=== PATIENT | male | born 1965 | race Two or more races ===

== ENCOUNTER 2017-02-16 07:25 | Emergency (ER) | payer OTHER ==
[2017-02-16 07:30] VITALS: BP 155/94; PULSE 68; TEMP 98; BMI 31.8
--- NOTE | 2017-02-16 07:47 | PDOC ---
Attending Attestation - Resident Resident Name: Luiza Wood - ED Attending Attestation I have performed the following: I have examined & evaluated the patient, The case was reviewed & discussed with the resident, I agree w/resident's findings & plan, Exceptions are as noted - HPI HPI: 02/16/17 07:43 Acute Exacerbation Chronic Back Pain - Physicial Exam PE: 02/16/17 07:46 Appears Uncomfortable, No acute neurological deficit - Medical Decision Making 02/16/17 07:[address] Luiza Wood's Assessment and Plan
--- NOTE | 2017-02-16 07:50 | PDOC ---
History of Present Illness - General Stated Complaint: BACK PAIN Time Seen by Provider: 02/16/17 07:26 History Source: Patient - History of Present Illness Initial Comments: 51 year old male with PMH of chronic back pain (s/p T4-T5 discectomy in 2007), HTN, and diabetes presenting for acute chronic back pain exacerbation. States that over the past two weeks his left sided back pain has worsened. It became particularly troublesome when he bent over yesterday to tie his shoe laces. He describes the pain as sharp lower left sided back pain that ranges from 5/10-10/ 10 in duration that only gets better when laying down and only slightly with Naproxen 500 BID. He states that Flexural does not help the pain either. He saw his PMD one month prior for shoulder pain and at that time had a slight back pain as well for which he was prescribed Flexural and naproxen. He had a CT performed one year prior that showed some L2-S3 spinal stenosis. He has limited movement 2/2 pain but denies sensation loss, extremity weakness, or bowel / bladder sensation. Denies fevers, chills, nausea, vomiting, diarrhea, ore other sick symptoms. 02/16/17 07:27 Past History - Past Medical History Allergies/Adverse Reactions: Allergies Allergy/AdvReac Type Severity Reaction Status Date / Time No Known Allergies Allergy Verified 02/16/17 07:30 Home Medications: Ambulatory Orders Lisinopril [Prinivil -] 40 mg PO DAILY 02/16/17 Metformin HCl [Metformin HCl ER] 1,000 mg PO BID 02/16/17 Diabetes: Yes Thyroid Disease: No - Surgical History Abdominal Surgery: Yes (tripp inguinal hernia repair) - Immunization History Immunization Up to Date: No - Suicide/Smoking/Psychosocial Hx Smoking History: Never smoked Have you smoked in the past 12 months: No Hx Alcohol Use: No Drug/Substance Use Hx: No Substance Use Type: None Review of Systems - Review of Systems Constitutional: No: Chills, Fever HEENTM: No: Blurred Vision, Double Vision Respiratory: No: Cough Cardiac (ROS): No: Chest Pain ABD/GI: No: Abdominal Distended, Nausea, Vomiting : No: Burning, Dysuria, Discharge Musculoskeletal: No: Back Pain, Joint Pain Neurological: No: Headache, Numbness, Paresthesia *Physical Exam - Physical Exam General Appearance: Yes: Nourished, Appropriately Dressed, Apparent Distress, Mild Distress HEENT: positive: EOMI, WHITNEY, Normal Voice Neck: positive: Normal Thyroid, Supple. negative: Tender, Rigid Respiratory/Chest: positive: Lungs Clear, Normal Breath Sounds. negative: Chest Tender Cardiovascular: positive: Regular Rhythm, Regular Rate, S1, S2. negative: Edema , JVD, Murmur Gastrointestinal/Abdominal: positive: Normal Bowel Sounds, Flat, Soft. 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 TTP over left lower back at L1-L3 region.), Respond to painful stimul. negative: Numbness, Sensory Deficit Medical Decision Making - Medical Decision Making 02/16/17 08:31 51 year old male with history of back pain and spinal stenosis presenting with acute non-traumatic acute on chronic back pain without any radicular signs or neurological deficits. Pain improved after Toradol 60 IM and patient will follow up with his neurologist. He has flexural and Naproxen at home which only slightly help the pain but he is refusing any opiates and we do not feel that they would be beneficial for him in the long run. *DC/Admit/Observation/Transfer Diagnosis at time of Disposition: Back pain - Discharge Dispostion Disposition: HOME Condition at time of disposition: Improved Admit: No - Patient Instructions Additional Instructions: Please follow up with your neurologist for further treatment of your back pain. Please return to the ED if the pain is not controlled with your Naproxen or Flexural at home.
[2017-02-16] MEDS ORDERED: KETOROLAC TROMETHAMINE 60 MG/2 ML VIAL IM ONE (07:51)
[2017-02-16] MEDS ORDERED: KETOROLAC TROMETHAMINE 60 MG/2 ML VIAL ONE (07:54)
== END 2017-02-16 08:54 | disposition home or self-care (01) ==
LOC: JER 07:25
PROC: 3E0233Z Introduction of Anti-inflammatory into Muscle, Percutaneous Approach (ICD-10-PCS; principal; 2017-02-16)
DX: M54.6 Pain in thoracic spine (principal); I10 Essential (primary) hypertension; E11.9 Type 2 diabetes mellitus without complications
CPT/HCPCS: 96372; 99283-25

== ENCOUNTER 2018-04-14 20:49 | Observation (INO) | payer SELFPAY ==
[2018-04-14 21:47] VITALS: BMI 26.6
--- NOTE | 2018-04-14 21:49 | PDOC ---
History of Present Illness - General Chief Complaint: Syncope/Near Syncope Stated Complaint: SYNCOPE Time Seen by Provider: 04/14/18 21:48 - History of Present Illness Initial Comments: 04/14/18 22:48 The patient is a 52 year old male with a history of HTN, DM who presents for evaluation following a syncopal episode. The patient reports having 2 syncopal episodes prior to presentation to the ED today. He notes that after the syncopal episodes, he has been experiencing left sided chest pressure with an associated pressure/pounding headache. He states that his headache is associated with photophobia and phonophobia. He denies a history of headaches in the past. He states his chest pain has improved slightly on presentation to the ED and otherwise denies fevers, chills, SOB, vomiting, abdominal pain, numbness, tingling, weakness, or changes with urination or bowel movements. Past History - Past Medical History Allergies/Adverse Reactions: Allergies Allergy/AdvReac Type Severity Reaction Status Date / Time No Known Allergies Allergy Verified 04/14/18 21:46 Home Medications: Ambulatory Orders Lisinopril [Prinivil -] 40 mg PO DAILY 02/16/17 Metformin HCl [Metformin HCl ER] 1,000 mg PO BID 02/16/17 Diabetes: Yes Thyroid Disease: No - Surgical History Abdominal Surgery: Yes (tripp inguinal hernia repair) - Immunization History Immunization Up to Date: No - Suicide/Smoking/Psychosocial Hx Smoking History: Never smoked Have you smoked in the past 12 months: No Information on smoking cessation initiated: No Hx Alcohol Use: No Drug/Substance Use Hx: No Substance Use Type: None Review of Systems - Review of Systems Comments:: 04/14/18 22:52 Constitutional: No fevers, chills, fatigue, malaise HEENT: No Rhinorrhea, nasal congestion, visual changes Cardiovascular: Chest pressure, syncope. No palpitations, lightheadedness Respiratory: No Cough, SOB, Hemoptysis, Gastrointestinal: Nausea. No Abdominal pain, Vomiting, Constipation, Diarrhea, Melena Genitourinary: No Dysuria, Frequency, Urgency, Hesitancy, Hematuria, Flank pain Musculoskeletal: No Myalgia, arthralgia Skin: No rashes, itching, bruising, pallor Neurologic: Headache. No Dizziness, Numbness, Weakness, or Tingling Psychiatric: No Hallucinations. No SI or HI *Physical Exam - Vital Signs Last Vital Signs Temp Pulse Resp BP Pulse Ox 98.6 F 72 19 142/95 97 04/14/18 20:49 04/14/18 20:49 04/14/18 20:49 04/14/18 20:49 04/14/18 20:49 - Physical Exam Comments: 04/14/18 22:52 General Appearance: Nourished. No Apparent Distress HEENT: EOMI, WHITNEY. No Pharyngeal Erythema, Tonsillar Exudate, Tonsillar Erythema Neck: No Cervical Lymphadenopathy Respiratory/Chest: Lungs Clear, Normal Breath Sounds. No Crackles, Rales, Rhonchi, Wheezing Cardiovascular: Regular Rhythm, Regular Rate. No Murmur, Gallops, Rubs Gastrointestinal/Abdominal: Normal Bowel Sounds, Soft. 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 Normal Finger to Nose and Heel to [place] Moderate Sedation - Procedure Monitoring Vital Signs: Procedure Monitoring Vital Signs Temperature 98.6 F 04/14/18 20:49 Pulse Rate 72 04/14/18 20:49 Respiratory Rate 19 04/14/18 20:49 Blood Pressure 142/95 04/14/18 20:49 O2 Sat by Pulse Oximetry (%) 97 04/14/18 20:49 Heart Score/ECG Review #1 ECG reviewed & interpreted by me at: 22:53 Compared to previous ECG there are: Changes noted (05/10/15) 04/14/18 22:53 Sinus rhythm with frequent PVCs Prolonged QT T wave inversions in leads II, III, aVF, V3-v6 ED Treatment Course - LABORATORY CBC & Chemistry Diagram: 04/15/18 00:05 04/15/18 00:05 Medical Decision Making - Medical Decision Making 04/14/18 22:55 The patient is a 52 year old male with a history of HTN, DM who presents for evaluation following a syncopal episode. Differential includes but is not limited to: ACS, Arrhythmia, Intracranial process, Infectious, Metabolic Derangement. Given the patient's history and physical exam, we will obtain a cbc, cmp, troponin, ua, ekg, chest plain film, head CT to evaluate further. We will treat with iv fluids, tylenol, benadryl, reglan and continue to monitor and reassess while here in the ED. 04/15/18 06:00 CBC, troponin, ua are unremarkable. CMP demonstrates elevated glucose to 400s. Chest plain film is unremarkable. Head CT is unremarkable as preliminarily read by our precision machining instructor radiologist. Given the patient's abnormal EKG with elevated blood sugar and syncope, he will require observation admission for further monitoring. We discussed the case with the admitting team who accepted the patient for admission. *DC/Admit/Observation/Transfer Diagnosis at time of Disposition: Hyperglycemia Syncope Qualifiers: Syncope type: unspecified Qualified Code(s): R55 - Syncope and collapse Chest pain Qualifiers: Chest pain type: unspecified Qualified Code(s): R07.9 - Chest pain, unspecified - Discharge Dispostion Condition at time of disposition: Stable Decision to Admit order: Yes - Referrals - Patient Instructions - Post Discharge Activity
[2018-04-14] MEDS ORDERED: METOCLOPRAMIDE HCL INJECTION 10 MG/2 ML VIAL IVPUSH ONE (22:02)
[2018-04-14] MEDS ORDERED: ACETAMINOPHEN 1000 MG/100 ML VIAL (NON FORMULARY) IVPB ONE (22:02)
--- NOTE | 2018-04-14 22:19 | PDOC ---
Attending Attestation - [facility] HPI: 04/14/18 22:19 The patient is a 52 year old male, with a significant past medical history of chronic back pain (s/p T4-T5 discectomy in 2007), HTN, and diabetes, who presents to the emergency department via ems after a syncopal episode about 2 hours prior to ED arrival today. He now complains of chest pain and headache now. He states he had two syncopal episodes lasting for a few seconds each time. He denies any head trauma. He reports left sided chest pressure pain and a diffuse pounding pressure like headache with associated sensitivity to light which started after his syncopal episodes. He states he has been under a great deal of stress this month. He denies a history of headaches. The patient denies shortness of breath and dizziness. The patient denies fever, chills, nausea, vomit, diarrhea and constipation. The patient denies dysuria, frequency, urgency and hematuria. Allergies: NKDA Past surgical history: b/l inguinal hernia repairs Social history: denies toxic habits - Medical Decision Making 04/14/18 22:19 Documentation prepared by Dania Bunn, acting as medical esthetician for Gordon Hercules MD ------ EXAM: HEAD CT WITHOUT CONTRAST HISTORY: Rule out intracranial process COMPARISON: None. FINDINGS: The ventricular system is midline and nondilated. The sulcal pattern is normal for the patient's age. There is no bleed, mass, extra-axial fluid collection or mass effect. No skull fracture or skull lesion is identified. The visualized paranasal sinuses and mastoid air cells are clear. IMPRESSION: Normal exam. THIS DOCUMENT HAS BEEN ELECTRONICALLY SIGNED Reed Khan MD 04/14/2018 23:42 EST <Dania Bunn - Last Filed: 04/15/18 00:03> - Resident Resident Name: Derek Frye - ED Attending Attestation I have performed the following: I have examined & evaluated the patient, The case was reviewed & discussed with the resident, I agree w/resident's findings & plan, Exceptions are as noted - Physicial Exam PE: 04/14/18 23:14 Agree with exam as documented by resident - Medical Decision Making 04/14/18 23:14 Pt describes leoncio syncopal events x2 w/o prodrome, no nausea, dizziness prior to event, no discernable trigger, did not occur while transitioning to standing. Differential for syncope is broad, most c/f arrythmia, less likely vasovagal, orthostatic. Headache with concerning feature of sudden onset. f/u labs, ekg, ct b dispo per clinical course 04/15/18 04:04 Abnormal ekg in context of syncope pt to be admitted <Gordon Hercules - Last Filed: 04/15/18 04:05>
[2018-04-14] MEDS ORDERED: METOCLOPRAMIDE HCL INJECTION 10 MG/2 ML VIAL ONE (22:33)
[2018-04-14] MEDS ORDERED: ACETAMINOPHEN INJECTION 100 ML IVPB ONE (22:34)
[2018-04-14 22:52] LABS: URINE APPEARANCE CLEAR; URINE BILIRUBIN NEGATIVE (<2.0 mg/dL); URINE COLOR STRAW; URINE GLUCOSE (UA) 3+ (NEGATIVE); URINE KETONE NEGATIVE (NEGATIVE); URINE LEUK ESTERASE NEGATIVE (NEGATIVE); URINE NITRITE NEGATIVE (NEGATIVE); URINE PROTEIN NEGATIVE (NEGATIVE); URINE UROBILINOGEN NEGATIVE mg/dL (0.2-1.0)
[2018-04-15 00:48] LABS: HEMATOCRIT 39.8 % (35.4-49); RBC 4.52 M/mm3 (4.00-5.60); WHITE BLOOD COUNT 6.2 K/mm3 (4.0-10.0)
[2018-04-15 00:49] LABS: BASO % 0.5 % (0-2.0); EOS % 2.5 % (0-4.5); LYMPH % 35.2 % (8-40); MCH 30.9 pg (25.7-33.7); MEAN CELL VOLUME 88.1 fl (80-96); MEAN PLT VOLUME 11.4 fl (7.5-11.1); MONO % 8.1 % (3.8-10.2); NEUT % 53.7 % (42.8-82.8); PLATELET COUNT 141 K/MM3 (134-434)
[2018-04-15 01:15] LABS: ALBUMIN 3.4 g/dl (3.4-5.0); ALK PHOS 119 U/L (45-117); ANION GAP 5 MMOL/L (8-16); BILIRUBIN,TOTAL 0.5 mg/dL (0.2-1); BLOOD UREA NITROGEN 13 mg/dL (7-18); CALCIUM 8.1 mg/dL (8.5-10.1); CHLORIDE 105 mmol/L (98-107); CO2 26 mmol/L (21-32); CREATININE 1.1 mg/dL (0.55-1.3); MAGNESIUM 2.1 mg/dL (1.8-2.4); PHOSPHOROUS 3.3 mg/dL (2.5-4.9); POTASSIUM 4.3 mmol/L (3.5-5.1); SGOT/AST 22 U/L (15-37); SGPT/ALT 31 U/L (13-61); SODIUM 137 mmol/L (136-145); TOT PROT 6.4 g/dl (6.4-8.2)
[2018-04-15 01:17] LABS: GLUCOSE,RANDOM 451 mg/dL (74-106)
[2018-04-15] MEDS ORDERED: SODIUM CHLORIDE 1,000 ML IV STA ×2 (01:20→02:03)
[2018-04-15] MEDS ORDERED: ASPIRIN 81 MG CHEWABLE TABLETS PO ONE (02:03)
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
[2018-04-15] MEDS ORDERED: INSULIN (NOVOLOG) ASPART 100 UNITS/ML 10ML VIAL SQ ONE (03:24)
--- NOTE | 2018-04-15 03:50 | HP ---
CHIEF COMPLAINT: Passed out PCP: Dr. Cristin Bhardwaj HISTORY OF PRESENT ILLNESS: 52 y/o M with PMHx of DM, HTN presents after "Fainting" earlier this evening. Patient says he has had increased stress from work for the past 1 month. He says he had a normal work day today. When he arrived home, he had an argument with his daughter after which he was very upset. He says he walked away, and started to feel an intense headache accompanied by chest pain. Patient describes the headache as a 8/10 pressure and pounding sensation at his b/l temporal areas without radiation. He describes the Chest pain as a 9/10, left sided chest pressure without radiation. After experiencing both of these sensations, patient says he "fainted and blacked out." The next thing the patient recalls is waking up in his bed surrounded by EMS. His memory of the event is very vague and he is unsure if he lost bladder control. Patient told him that he awoke and the lost conciousness however patient does not recall waking. Additionally he denies any jerking extremity or neck movements. He endorses photophobia that has since resolved, Blurry vision, and dizziness. Patient mentions that he had a similar episode of fainting about 3 years ago however he never visited a doctor to follow up. He says that episode was also possibly due to stress. Over the past month, patient has noticed he has lost some weight (Unable to specify amount). He also endorses Urinary frequency, increased thirst. He does not routinely take his medications or check his blood sugar at home. He has last followed up with his PCP about 1 year ago. Denies any decreased PO Intake, Fevers, chills, SOB, nausea, vomiting, diarrhea , constipation. Recent Travel: Denies PAST MEDICAL HISTORY: HTN, DM PAST SURGICAL HISTORY: B/L Inguinal Hernia Repair T4-T5 discectomy Should repair Social History: Smoking: Denies Alcohol: Denies Drugs: Denies Occupation: [employer] Ambulation: Without assistance Residence: At home with and daughter Family History: Mother: DM, HTN Sister: Pancreatic Ca, DM, HTN Allergies No Known Allergies Allergy (Verified 04/14/18 21:46) HOME MEDICATIONS: Home Medications Medication Instructions Recorded Lisinopril [Prinivil -] 40 mg PO DAILY 02/16/17 Metformin HCl [Metformin HCl ER] 1,000 mg PO BID 02/16/17 REVIEW OF SYSTEMS As per HPI PHYSICAL EXAMINATION Vital Signs - 24 hr 04/14/18 04/15/18 20:49 00:40 Temperature 98.6 F 98.1 F Pulse Rate 72 Pulse Rate [ 58 L Apical] Respiratory 19 20 Rate Blood Pressure 142/95 Blood Pressure 109/71 [Right Arm] O2 Sat by Pulse 97 98 Oximetry (%) GENERAL: A&Ox3, NAD HEAD: NCAT EYES: PERRL, EOMI EARS, NOSE, THROAT: Oropharynx clear without exudates. Moist mucous membranes. NECK: No lymphadenopathy, No JVD LUNGS: Breath sounds equal, clear to auscultation bilaterally. No wheezes HEART: Regular rate and rhythm, normal S1 and S2 without murmur ABDOMEN: Soft, nontender, not distended, + bowel sounds, no guarding MUSCULOSKELETAL: No CVA tenderness. EXTREMITIES: 2+ pulses, No peripheral edema. NEUROLOGICAL: Cranial nerves II-XII intact. Normal speech. Gross sensation intact globally. 5/5 Muscle strength throughout. No dyskenesia or dysmetria present PSYCHIATRIC: Cooperative. Good eye contact. Appropriate mood and affect. SKIN: Warm, dry Laboratory Results - last 24 hr 04/14/18 04/15/18 04/15/18 22:20 00:05 00:05 WBC 6.2 RBC 4.52 Hgb 14.0 Hct 39.8 MCV 88.1 MCH 30.9 MCHC 35.0 RDW 13.0 Plt Count 141 MPV 11.4 H Absolute Neuts (auto) 3.4 Neutrophils % 53.7 Lymphocytes % 35.2 Monocytes % 8.1 Eosinophils % 2.5 Basophils % 0.5 Nucleated RBC % 0 Sodium 137 Potassium 4.3 Chloride 105 Carbon Dioxide 26 Anion Gap 5 L BUN 13 Creatinine 1.1 Creat Clearance w eGFR > 60 Random Glucose 451 H* Calcium 8.1 L Phosphorus 3.3 Magnesium 2.1 Total Bilirubin 0.5 AST 22 ALT 31 Alkaline Phosphatase 119 H Creatine Kinase 396 H Creatine Kinase Index 1.4 CK-MB (CK-2) 5.8 H Troponin I < 0.02 Total Protein 6.4 Albumin 3.4 Urine Color Straw Urine Appearance Clear Urine pH 5.0 Ur Specific [place] 1.028 Urine Protein Negative Urine Glucose (UA) 3+ H Urine Ketones Negative Urine Blood Negative Urine Nitrite Negative Urine Bilirubin Negative Urine Urobilinogen Negative Ur Leukocyte Esterase Negative ASSESSMENT/PLAN: 52 y/o M with PMHx of DM, HTN presents after "Fainting" earlier this evening, found to have elevated Blood glucose and CK, and will be observed on Tele for Syncope. #Syncope accompanied by Chest pain and Headache -Unclear Etiology -EKG Reveals Sinus rhythm with frequent PVCs, VR 72, QTc 481, TWI in II, II, aVF , V4-V6 -Head CT without contrast: Normal exam. No Bleed, mass, extra-axial fluid collection -Echo -Carotid Dopplers -MRI Brain without contrast -TSH, Lipid panel ordered -Repeat EKG and 2nd Cardiac profile ordered -Cardiology (Dr. Pizarro) consulted -Tele monitoring -ASA given in ED -Continue IV NS @ 75 mls/hr #Uncontrolled DM -Hold home dose Metformin -4 units Novolog now -ISS BGMs ACHS -HbA1c pending -Social Work consulted as [facility] and could benefit from available resources to obtain his medications #Hx of HTN -Can resume Home dose Lisinopril once meds-Rec'ed #FEN -IV NS @ 75 mls/hr -Lytes WNL -NPO #PPx -DVT: Lovenox Dispo: Tele-Obs, Will need Med-Rec Visit type - Emergency Visit Emergency Visit: Yes ED Registration Date: 04/15/18 Care time: The patient presented to the Emergency Department on the above date and was hospitalized for further evaluation of their emergent condition. - New Patient This patient is new to me today: Yes Date on this admission: 04/16/18 - Critical Care Critical Care patient: No
[2018-04-15] MEDS ORDERED: SODIUM CHLORIDE 1,000 ML IV SCH (04:00)
[2018-04-15] MEDS ORDERED: INSULIN (NOVOLOG) ASPART 100 UNITS/ML 10ML VIAL ONE ×4 (04:10→16:56)
[2018-04-15] MEDS: INSULIN SLIDING SCALE (NOVOLOG) 1 VIAL SQ SCH ×3 (06:30→16:51)
[2018-04-15 07:02] LABS: BASO % 0.6 % (0-2.0); EOS % 2.9 % (0-4.5); HEMATOCRIT 38.7 % (35.4-49); HEMOGLOBIN 13.5 GM/dL (11.7-16.9); LYMPH % 45.5 % (8-40); MCH 30.7 pg (25.7-33.7); MCHC 34.8 g/dl (32.0-35.9); MEAN CELL VOLUME 88.3 fl (80-96); MEAN PLT VOLUME 10.7 fl (7.5-11.1); MONO % 8.7 % (3.8-10.2); NEUT % 42.3 % (42.8-82.8); PLATELET COUNT 141 K/MM3 (134-434); RBC 4.38 M/mm3 (4.00-5.60); WHITE BLOOD COUNT 6.3 K/mm3 (4.0-10.0)
[2018-04-15 07:42] LABS: ALBUMIN 3.1 g/dl (3.4-5.0); ALK PHOS 105 U/L (45-117); ANION GAP 4 MMOL/L (8-16); BILIRUBIN,TOTAL 0.7 mg/dL (0.2-1); BLOOD UREA NITROGEN 11 mg/dL (7-18); CALCIUM 7.6 mg/dL (8.5-10.1); CHLORIDE 113 mmol/L (98-107); CHOLESTEROL 151 mg/dL (50-200); CO2 25 mmol/L (21-32); CREATININE 0.9 mg/dL (0.55-1.3); GLUCOSE,RANDOM 90 mg/dL (74-106); HDL CHOLESTEROL 58 mg/dL (40-60); PHOSPHOROUS 2.6 mg/dL (2.5-4.9); POTASSIUM 3.6 mmol/L (3.5-5.1); SGOT/AST 20 U/L (15-37); SGPT/ALT 27 U/L (13-61); SODIUM 142 mmol/L (136-145); TRIGLYCERIDES 87 mg/dL (0-150)
[2018-04-15 09:27] VITALS: TEMP 98.7
[2018-04-15] MEDS ORDERED: ENOXAPARIN NA (PORCINE) 40 MG/0.4 ML DISP.SYRIN SQ SCH (10:00)
--- NOTE | 2018-04-15 10:08 | PN ---
Teaching Attending Note Name of Resident: Shawnee Dorsey ATTENDING PHYSICIAN STATEMENT I saw and evaluated the patient. I reviewed the resident's note and discussed the case with the resident. I agree with the resident's findings and plan as documented. SUBJECTIVE: Patient is feeling better with no acute distress, no shortness of breath, no nausea or vomiting. No further syncopal episodes. OBJECTIVE: Vital Signs Temperature 98.7 F 04/15/18 09:26 Pulse Rate 60 04/15/18 09:26 Respiratory Rate 18 04/15/18 09:26 Blood Pressure 139/73 04/15/18 09:26 O2 Sat by Pulse Oximetry (%) 98 04/15/18 09:26 GENERAL: AA0x3, NAD HEAD: NCAT ;EYES: PERRL, EOMI EARS, NOSE, THROAT: Oropharynx clear without exudates. Moist mucous membranes. NECK: No lymphadenopathy, No JVD LUNGS: Breath sounds equal, clear to auscultation bilaterally. No wheezes HEART: Regular rate and rhythm, normal S1 and S2 without murmur ABDOMEN: Soft, nontender, not distended, Positive for BS , no guarding MUSCULOSKELETAL: No CVA tenderness. EXTREMITIES: 2+ pulses, No peripheral edema. NEUROLOGICAL: Cranial nerves II-XII intact. Normal speech. PSYCHIATRIC: Cooperative. Good eye contact. Appropriate mood and affect. SKIN: Warm, dry, no erythema. CBCD WBC 6.3 K/mm3 (4.0-10.0) 04/15/18 06:40 RBC 4.38 M/mm3 (4.00-5.60) 04/15/18 06:40 Hgb 13.5 GM/dL (11.7-16.9) 04/15/18 06:40 Hct 38.7 % (35.4-49) 04/15/18 06:40 MCV 88.3 fl (80-96) 04/15/18 06:40 MCHC 34.8 g/dl (32.0-35.9) 04/15/18 06:40 RDW 13.0 % (11.9-15.9) 04/15/18 06:40 Plt Count 141 K/MM3 (134-434) 04/15/18 06:40 MPV 10.7 fl (7.5-11.1) 04/15/18 06:40 CMP Sodium 142 mmol/L (136-145) 04/15/18 06:40 Potassium 3.6 mmol/L (3.5-5.1) 04/15/18 06:40 Chloride 113 mmol/L (98-107) H 04/15/18 06:40 Carbon Dioxide 25 mmol/L (21-32) 04/15/18 06:40 Anion Gap 4 MMOL/L (8-16) L 04/15/18 06:40 BUN 11 mg/dL (7-18) 04/15/18 06:40 Creatinine 0.9 mg/dL (0.55-1.3) 04/15/18 06:40 Creat Clearance w eGFR > 60 (>60) 04/15/18 06:40 Random Glucose 90 mg/dL (74-106) 04/15/18 06:40 Calcium 7.6 mg/dL (8.5-10.1) L 04/15/18 06:40 Total Bilirubin 0.7 mg/dL (0.2-1) 04/15/18 06:40 AST 20 U/L (15-37) 04/15/18 06:40 ALT 27 U/L (13-61) 04/15/18 06:40 Alkaline Phosphatase 105 U/L (45-117) 04/15/18 06:40 Total Protein 6.0 g/dl (6.4-8.2) L 04/15/18 06:40 Albumin 3.1 g/dl (3.4-5.0) L 04/15/18 06:40 CARDIAC ENZYMES Creatine Kinase 282 IU/L (26-308) 04/15/18 06:40 Troponin I < 0.02 ng/ml (0.00-0.05) 04/15/18 06:40 Current Medications Generic Name Dose Route Start Last Admin Trade Name Freq PRN Reason Stop Dose Admin Enoxaparin Sodium 40 mg 04/15/18 10:00 Lovenox - SQ DAILY XOCHITL Sodium Chloride 1,000 mls @ 75 mls/hr 04/15/18 04:00 04/15/18 04:18 Normal Saline - IV 75 mls/hr ASDIR XOCHITL Administration Insulin Aspart 1 vial 04/15/18 07:00 04/15/18 06:30 Novolog Vial Sliding Scale - SQ Not Given ACHS [facility] Protocol Home Medications Medication Instructions Recorded Lisinopril [Prinivil -] 40 mg PO DAILY 02/16/17 Metformin HCl [Metformin HCl ER] 1,000 mg PO BID 02/16/17 EKG Reveals Sinus rhythm with frequent PVCs, VR 72, QTc 481, TWI in II, II, aVF , V4-V6 Head CT without contrast , within normal limit Echo: trace TR, MN, otherwise normal ASSESSMENT AND PLAN: Patient is a 52 y/o male with PMHx of DM, HTN presents after having a syncopal episode at home , was found to have elevated Blood glucose and CK, and was placed on observation to [facility] for Syncope. #Syncope most likely vasovagal event. cardio consulted for further evaluation. repeat EKG on ASA continue , check TSH and Lipid panel #T2DM Hold home dose Metformin, added Levemir 10U qhs, Hgb A1c is 12, continue with ISS BGMs ACHS #Hx of HTN continue home meds, except lowered the dose of Lisinopril since BP is controlled DVT Px: Lovenox
--- NOTE | 2018-04-15 12:02 | EKG ---
Test Reason : Blood Pressure : / mmHG Vent. Rate : 060 BPM Atrial Rate : 060 BPM P-R Int : 136 ms QRS Dur : 104 ms QT Int : 426 ms P-R-T Axes : 053 -28 -39 degrees QTc Int : 426 ms SINUS RHYTHM WITH FREQUENT PREMATURE VENTRICULAR COMPLEXES T WAVE ABNORMALITY, CONSIDER LATERAL ISCHEMIA ABNORMAL ECG WHEN COMPARED WITH ECG OF 14-APR-2018 22:38, QT HAS SHORTENED Confirmed by SHAUNNA ALFRED, IRIS ([id number]) on 04/15/2018 12:02:03 PM Referred By: JOSEFINA GROSS DR Confirmed By:IRIS MAZA MD
--- NOTE | 2018-04-15 12:03 | EKG ---
Test Reason : Blood Pressure : / mmHG Vent. Rate : 072 BPM Atrial Rate : 072 BPM P-R Int : 166 ms QRS Dur : 110 ms QT Int : 440 ms P-R-T Axes : 058 -22 -34 degrees QTc Int : 481 ms SINUS RHYTHM WITH FREQUENT PREMATURE VENTRICULAR COMPLEXES NONSPECIFIC T WAVE ABNORMALITY PROLONGED QT ABNORMAL ECG WHEN COMPARED WITH ECG OF 10-MAY-2015 20:50, FUSION COMPLEXES ARE NO LONGER PRESENT NONSPECIFIC T WAVE ABNORMALITY HAS REPLACED INVERTED T WAVES IN ANTERIOR LEADS NONSPECIFIC T WAVE ABNORMALITY, WORSE IN LATERAL LEADS Confirmed by IRSI MAZA MD ([id number]) on 04/15/2018 12:03:30 PM Referred By: Confirmed By:IRIS MAZA MD
--- NOTE | 2018-04-15 12:17 | ECHO ---
Name: CRUZ BRITTONIS Exam:Adult Echocardiogram Study Date: 04/15/2018 07:32 AM Age: 52 yrs Reason For Study: SYNCOPE Height: 67 in Weight: 170 lb BSA: 1.9 m2 MMode/2D Measurements & Calculations IVSd: 0.94 cm Ao root diam: 2.8 cm LVIDd: 5.2 cm LA dimension: 2.7 cm LVIDs: 3.2 cm LVPWd: 0.77 cm EDV(Teich): 130.7 ml LAV (MOD-bp): 43.9 ml ESV(Teich): 41.5 ml Doppler Measurements & Calculations MV E max favio: 114.0 cm/sec TR max favio: 229.4 cm/sec MV A max favio: 57.2 cm/sec TR max P.1 mmHg MV E/A: 2.0 MV dec time: 0.22 sec PI end-d favio: 102.5 cm/sec Med Peak E' Favio: 10.8 cm/sec Med E/e': 10.6 Lat Peak E' Favio: 13.2 cm/sec Lat E/e': 8.7 PI Vmax: 161.5 cm/sec Procedure A complete two-dimensional transthoracic echocardiogram was performed (2D, M-mode, Doppler and color flow Doppler). Left Ventricle The left ventricular size, thickness and function are normal. The left ventricular ejection fraction is normal. Ejection Fraction = 60-65%. The left ventricular wall motion is normal. Right Ventricle The right ventricle is normal in size and function. Atria Normal left and right atrial size and function. Mitral Valve There is no mitral regurgitation noted. Tricuspid Valve There is trace tricuspid regurgitation. There was insufficient TR detected to calculate RV systolic p ressure. Aortic Valve The aortic valve is trileaflet. No hemodynamically significant valvular aortic stenosis. No aortic regurgitation is present. Pulmonic Valve Trace pulmonic valvular regurgitation. Great Vessels The aortic root is normal size. Pericardium/Pleura There is no pericardial effusion. Interpretation Summary The left ventricular size, thickness and function are normal The right ventricle is normal in size and function. There is trace tricuspid regurgitation. Trace pulmonic valvular regurgitation. MD Leroy Bowman 04/15/2018 12:17 PM
--- NOTE | 2018-04-15 14:52 | PN ---
Physical Exam: SUBJECTIVE: Patient seen and examined at bedside. No acute events overnight. OBJECTIVE: Vital Signs Temperature 98.7 F 04/15/18 09:26 Pulse Rate 60 04/15/18 09:26 Respiratory Rate 18 04/15/18 09:26 Blood Pressure 139/73 04/15/18 09:26 O2 Sat by Pulse Oximetry (%) 98 04/15/18 09:26 GENERAL: A&Ox3, NAD HEAD: NCAT EYES: PERRL, EOMI EARS, NOSE, THROAT: Oropharynx clear without exudates. Moist mucous membranes. NECK: No lymphadenopathy, No JVD LUNGS: Breath sounds equal, clear to auscultation bilaterally. No wheezes HEART: Regular rate and rhythm, normal S1 and S2 without murmur ABDOMEN: Soft, nontender, not distended, + bowel sounds, no guarding MUSCULOSKELETAL: No CVA tenderness. EXTREMITIES: 2+ pulses, No peripheral edema. NEUROLOGICAL: Cranial nerves II-XII intact. Normal speech. Gross sensation intact globally. 5/5 Muscle strength throughout. No dyskinesia or dysmetria present PSYCHIATRIC: Cooperative. Good eye contact. Appropriate mood and affect. SKIN: Warm, dry CBCD WBC 6.3 K/mm3 (4.0-10.0) 04/15/18 06:40 RBC 4.38 M/mm3 (4.00-5.60) 04/15/18 06:40 Hgb 13.5 GM/dL (11.7-16.9) 04/15/18 06:40 Hct 38.7 % (35.4-49) 04/15/18 06:40 MCV 88.3 fl (80-96) 04/15/18 06:40 MCHC 34.8 g/dl (32.0-35.9) 04/15/18 06:40 RDW 13.0 % (11.9-15.9) 04/15/18 06:40 Plt Count 141 K/MM3 (134-434) 04/15/18 06:40 MPV 10.7 fl (7.5-11.1) 04/15/18 06:40 CMP Sodium 142 mmol/L (136-145) 04/15/18 06:40 Potassium 3.6 mmol/L (3.5-5.1) 04/15/18 06:40 Chloride 113 mmol/L (98-107) H 04/15/18 06:40 Carbon Dioxide 25 mmol/L (21-32) 04/15/18 06:40 Anion Gap 4 MMOL/L (8-16) L 04/15/18 06:40 BUN 11 mg/dL (7-18) 04/15/18 06:40 Creatinine 0.9 mg/dL (0.55-1.3) 04/15/18 06:40 Creat Clearance w eGFR > 60 (>60) 04/15/18 06:40 Calcium 7.6 mg/dL (8.5-10.1) L 04/15/18 06:40 Total Bilirubin 0.7 mg/dL (0.2-1) 04/15/18 06:40 AST 20 U/L (15-37) 04/15/18 06:40 ALT 27 U/L (13-61) 04/15/18 06:40 Alkaline Phosphatase 105 U/L (45-117) 04/15/18 06:40 Total Protein 6.0 g/dl (6.4-8.2) L 04/15/18 06:40 Albumin 3.1 g/dl (3.4-5.0) L 04/15/18 06:40 Active Medications Enoxaparin Sodium (Lovenox -) 40 mg SQ DAILY [facility] Last Admin: 04/15/18 12:06 Dose: 40 mg Sodium Chloride (Normal Saline -) 1,000 mls @ 75 mls/hr IV ASDIR XOCHITL Last Admin: 04/15/18 04:18 Dose: 75 mls/hr Insulin Aspart (Novolog Vial Sliding Scale -) 1 vial SQ ACHS [facility]; Protocol Last Admin: 04/15/18 12:04 Dose: 4 units IMAGING: * CXR: No acute chest pathology * Head CT: No acute intracranial pathology. * B/l Carotid doppler: Minimal intimal thickening at the common carotid birfurcation, bilaterally w/o evidence of hemodynamically insignificant stenosis. * Echo: LV size, thickness, fxn are normal. RV is normal in size and fxn. Trace TR. Trace pulmonic valvular regurgitation. ASSESSMENT/PLAN: 52 y/o M with PMHx of DM, HTN presents after "Fainting" earlier this evening, found to have elevated Blood glucose and CK, and will be observed on Tele for Syncope. #Syncope accompanied by Chest pain and Headache; unclear etiology. -EKG Reveals Sinus rhythm with frequent PVCs, VR 72, QTc 481, TWI in II, II, aVF , V4-V6; repeat EKG showed NSR, QTc 426, multiple PVCs, unchanged T wave inversions -Echo and carotid doppler noted above -TSH 1.11, Lipid panel wnl -trop neg x2 -Cardiology (Dr. Pizarro) consulted; await recs -Tele monitoring -Continue IV NS @ 75 mls/hr #DM; uncontrolled, initial BGM 453 -Hold home dose Metformin -Levemir 10U HS -ISS BGMs ACHS -HbA1c 12.9 -Social Work consulted as patient currently does not have health insurance and could benefit from available resources to obtain his medications #Hx of HTN -Lisinopril 20 QD #FEN -IV NS @ 75 mls/hr -Lytes WNL -diabetic/sodium controlled diet #PPx -DVT: Lovenox 40 SQ QD dispo -cont to monitor on tele obs -meds reconciled
[2018-04-15] MEDS ORDERED: LISINOPRIL 20 MG TABLET (FP) PO SCH (15:30)
--- NOTE | 2018-04-15 15:41 | CON.CARD ---
Consult Consult Specialty:: Cardiology Referred by:: Dr. Hand Reason for Consultation:: Syncope - History of Present Illness Chief Complaint: Black out History of Present Illness: 52 year-old man with a PMHx of HTN and DM-II presented to ED 04/14/2018 with syncope. The patient had episode of syncope with LOC of unknown duration in the evening of his presentation. He has had increased stress from work for the past 1 month. He had an argument with his daughter after which he was very upset. He says he walked away, and started to feel an intense headache accompanied by chest pain. Patient describes the headache as a 8/10 pressure and pounding sensation and left sided chest pain as a 9/10 without radiation. He lost his consciousness while sitting afterwards. His memory of the event is very vague and he is unsure if he lost bladder control. He has good baseline exercise tolerance. He reports no history of CAD, UT or CHF. He was found normal sinus rhythm with frequent VPCs on ECG. Echo 04/15/2018 showed normal LV size and systolic function. LVEF = 60-65%. No significant valvular abnormalities noted. Carotid duplex and CT head were unremarkable. He remains stable since arrival in ED without syncope or near syncope, chest pain or palpitation. - History Source History Provided By: Patient, Medical Record Limitations to Obtaining History: No Limitations - Alcohol/Substance Use Hx Alcohol Use: No - Smoking History Smoking history: Never smoked Have you smoked in the past 12 months: No Home Medications - Allergies Allergies/Adverse Reactions: Allergies Allergy/AdvReac Type Severity Reaction Status Date / Time No Known Allergies Allergy Verified 04/14/18 21:46 - Home Medications Home Medications: Ambulatory Orders Lisinopril [Prinivil -] 40 mg PO DAILY 02/16/17 Metformin HCl [Metformin HCl ER] 1,000 mg PO BID 02/16/17 Insulin Glargine,Hum.rec.anlog [Lantus] 25 units HS 04/15/18 Review of Systems - Review of Systems Constitutional: reports: Unintentional Wgt. Loss Eyes: reports: No Symptoms HENT: reports: No Symptoms Neck: reports: No Symptoms Cardiovascular: reports: Other (Syncope) Respiratory: reports: No Symptoms Gastrointestinal: reports: No Symptoms Genitourinary: reports: No Symptoms Breasts: reports: No Symptoms Reported Musculoskeletal: reports: No Symptoms Integumentary: reports: No Symptoms Neurological: reports: Change in LOC Vital Signs: Vital Signs Temperature 98.7 F 04/15/18 09:26 Pulse Rate 60 04/15/18 09:26 Respiratory Rate 18 04/15/18 09:26 Blood Pressure 139/73 04/15/18 09:26 O2 Sat by Pulse Oximetry (%) 98 04/15/18 09:26 General: Well developed. Well nourished. No acute distress. Head: Normocephalic. Atraumatic, Eyes: PERRLA, EOMI. Sclerae anicteric. Conjunctivae clear. Neck: Supple. No JVD. No bruits. Heart: Normal S1, S2: Regular rhythm and rate. No murmur. No gallop or rub. Lungs: Symmetrical air entry. Clear to auscultation. No crackles. No wheezing or rhonchi. Abdomen: Soft. Bowel sound positive. Non tender. No masses. Extremities: No edema. No clubbing or cyanosis. PD 2+, equal bilaterally. Neuro: Intact, no focal findings. AAO X3. - Other Data Labs, Other Data: CBC, BMP 04/15/18 06:40 04/15/18 06:40 Troponin, BNP 04/15/18 04/15/18 00:05 06:40 Troponin I < 0.02 < 0.02 Troponin, BNP 04/15/18 04/15/18 00:05 06:40 Troponin I < 0.02 < 0.02 Assessment/Plan 52 year-old man with a PMHx of HTN and DM-II presented to ED 04/14/2018 with syncope. He was found normal sinus rhythm with frequent VPCs on ECG. Echo 2017 showed normal LV size and systolic function. LVEF = 60-65%. No significant valvular abnormalities noted. Carotid duplex and CT head were unremarkable. He remains stable since arrival in ED without syncope or near syncope, chest pain or palpitation. 1) syncope of unclear etiology: Frequent VPC is likely NOT the cause of syncope. Echo 04/15/2018 showed normal LV size and systolic function. LVEF = 60 -65%. No significant valvular abnormalities noted. Carotid duplex and CT head were unremarkable. Monitor orthostasis. Out patient cardiac follow up for possible tilt table test as out-pt. Neurology evaluation. The patient can be discharged or downgrade from cardiac standpoint. 2) Chest pain in the setting of severe headache. No recurrent chest pain. No ECG evidence of ischemia. No UT. Echo showed normal LV systolic function without regional wall motion abnormalities. Continue aspirin 81 daily. Out-pt cardiac follow up with Dr. Pizarro for further risk stratification. Please call us for reconsult as needed.
[2018-04-15] MEDS ORDERED: LISINOPRIL 20 MG TABLET (FP) ONE (16:03)
--- NOTE | 2018-04-15 16:57 | DS ---
Physical Exam: SUBJECTIVE: Patient seen and examined at bedside. No acute events overnight. OBJECTIVE: Vital Signs Period Temp Pulse Resp BP Sys/Mccarthy Pulse Ox Last 24 Hr 98.1 F-98.7 F 56-72 18-20 109-142/71-95 97-98 PHYSICAL EXAM GENERAL: A&Ox3, NAD HEAD: NCAT EYES: PERRL, EOMI EARS, NOSE, THROAT: Oropharynx clear without exudates. Moist mucous membranes. NECK: No lymphadenopathy, No JVD LUNGS: Breath sounds equal, clear to auscultation bilaterally. No wheezes HEART: Regular rate and rhythm, normal S1 and S2 without murmur ABDOMEN: Soft, nontender, not distended, + bowel sounds, no guarding MUSCULOSKELETAL: No CVA tenderness. EXTREMITIES: 2+ pulses, No peripheral edema. NEUROLOGICAL: Cranial nerves II-XII intact. Normal speech. Gross sensation intact globally. 5/5 Muscle strength throughout. No dyskinesia or dysmetria present PSYCHIATRIC: Cooperative. Good eye contact. Appropriate mood and affect. SKIN: Warm, dry LABS CBCD WBC 6.3 K/mm3 (4.0-10.0) 04/15/18 06:40 RBC 4.38 M/mm3 (4.00-5.60) 04/15/18 06:40 Hgb 13.5 GM/dL (11.7-16.9) 04/15/18 06:40 Hct 38.7 % (35.4-49) 04/15/18 06:40 MCV 88.3 fl (80-96) 04/15/18 06:40 MCHC 34.8 g/dl (32.0-35.9) 04/15/18 06:40 RDW 13.0 % (11.9-15.9) 04/15/18 06:40 Plt Count 141 K/MM3 (134-434) 04/15/18 06:40 MPV 10.7 fl (7.5-11.1) 04/15/18 06:40 CMP Sodium 142 mmol/L (136-145) 04/15/18 06:40 Potassium 3.6 mmol/L (3.5-5.1) 04/15/18 06:40 Chloride 113 mmol/L (98-107) H 04/15/18 06:40 Carbon Dioxide 25 mmol/L (21-32) 04/15/18 06:40 Anion Gap 4 MMOL/L (8-16) L 04/15/18 06:40 BUN 11 mg/dL (7-18) 04/15/18 06:40 Creatinine 0.9 mg/dL (0.55-1.3) 04/15/18 06:40 Creat Clearance w eGFR > 60 (>60) 04/15/18 06:40 Calcium 7.6 mg/dL (8.5-10.1) L 04/15/18 06:40 Total Bilirubin 0.7 mg/dL (0.2-1) 04/15/18 06:40 AST 20 U/L (15-37) 04/15/18 06:40 ALT 27 U/L (13-61) 04/15/18 06:40 Alkaline Phosphatase 105 U/L (45-117) 04/15/18 06:40 Total Protein 6.0 g/dl (6.4-8.2) L 04/15/18 06:40 Albumin 3.1 g/dl (3.4-5.0) L 04/15/18 06:40 HOSPITAL COURSE: Date of Admission:04/15/18 Date of Discharge: 04/15/18 Discharge Summary Reason For Visit: HYPERGLYCEMIA,SYNCOPE,CHEST PAIN Condition: Improved - Instructions Diet, Activity, Other Instructions: You were seen in the hospital for complaints of syncope (fainting episode). In the hospital, you underwent cardiac work up. Labs and imaging were done that were normal. Additionally, you were evaluated by a pharmaceutical sales representative and not found to have an acute cardiac condition related to your syncope. Your symptoms improved throughout your hospital stay. You are being discharged home. MEDICAL RECOMMENDATIONS Please take Aspirin 81 mg by mouth daily. Please stop taking Levemir 25U at night. Start taking Levemir 10U once every night. It is important that you continue taking your insulin as prescribed to avoid high blood sugar levels as this may affect your eyes and/or cause worsening nerve problems. You will need to see your primary care physician for dosage adjustment to achieve optimal blood sugar levels. Please take all home medications as directed. CONSULT RECOMMENDATIONS Please follow up with your primary care physician, Dr. Fernandez, tomorrow. Please also follow up with your pharmaceutical sales representative, Dr. Pizarro within 1-2 weeks. Please follow up with a neurologist for your fainting symptoms. You have been given a prescription to see Dr. Bill. Please make an appointment within 1 week. If you experience worsening chest pain, headaches, vision changes, shortness of breath, difficulty breathing, please proceed to your nearest emergency room immediately. Referrals: Cristin Bhardwaj [Primary Care Provider] - 04/16/18 William Pizarro MD [Staff Physician] - 1 Week Disposition: HOME - Home Medications Comprehensive Discharge Medication List: Ambulatory Orders Lisinopril [Prinivil -] 40 mg PO DAILY 02/16/17 Metformin HCl [Metformin HCl ER] 1,000 mg PO BID 02/16/17 Aspirin 81 mg PO DAILY #30 tab.chew 04/15/18 Insulin (Levemir) [Levemir Vial] 10 unit SQ HS #1 vial 04/15/18
[2018-04-15 19:02] VITALS: BP 150/90; PULSE 80
[2018-04-15] MEDS ORDERED: INSULIN (LEVEMIR) 100 UNITS/ML UNITS SQ SCH (22:00)
== END 2018-04-15 17:00 | disposition home or self-care (01) ==
LOC: JER 20:49 → JERBED 04-15 02:06
PROVIDERS: ADMIT Internal Medicine; ATTEND Internal Medicine
CPT/HCPCS: 36415; 70450-TC; 71045-TC-FY; 80053; 80061; 81003; 82550; 82553; 82962; 83036; 83721; 83735; 84100; 84443; 84484; 85025; 93005; 93010; 93306-TC; 93880-TC; 99285-25; G0378; J0131; J7030